=== PATIENT | male | born 1985 | race African-American/Black ===

== ENCOUNTER 2021-01-10 22:54 | Emergency (ER) | payer MEDICAID ==
[~2021-01-10] VITALS: Ht 175.3 cm; Wt 81.5 kg
[2021-01-11 00:03] LABS: CLARITY URINE CLEAR (CLEAR); COLOR URINE YELLOW (YELLOW); KETONES URINE NEGATIVE (NEGATIVE); LEUKOCYTE ESTERASE URINE NEGATIVE (NEGATIVE); NITRITE URINE NEGATIVE (NEGATIVE); OCCULT BLOOD URINE NEGATIVE (NEGATIVE); PROTEIN URINE NEGATIVE (NEGATIVE); SPECIFIC GRAVITY URINE 1.018 (1.005-1.030)
[2021-01-11 00:40] LABS: *AMPHETAMINES SCREEN URINE NEGATIVE (NEGATIVE); *BARBITURATES SCREEN URINE NEGATIVE (NEGATIVE); *BENZODIAZEPINES SCREEN URINE NEGATIVE (NEGATIVE); *COCAINE SCREEN URINE NEGATIVE (NEGATIVE); CANNABINOID URINE SCREEN NEGATIVE (NEGATIVE); METHADONE URINE SCREEN NEGATIVE (NEGATIVE); OPIATES URINE SCREEN NEGATIVE (NEGATIVE)
[2021-01-11 00:42] LABS: PHENCYCLIDINE URINE SCREEN NEGATIVE (NEGATIVE)
[2021-01-11 01:19] LABS: HEMOGLOBIN. 12.2 g/dL (14.0-18.0); MEAN CORPUSCULAR HEMOGLOBIN 28.8 pg (28.0-32.0); MEAN CORPUSCULAR VOLUME 84.7 fL (80.0-94.0); MEAN PLATELET VOLUME 7.9 fl (7.4-10.4); PLATELET 141 x1000/uL (130-400); RED BLOOD CELL COUNT 4.26 mill/uL (4.7-6.1); RED CELL DISTRIBUTION WIDTH 13.6 % (11.6-14.6)
[2021-01-11 01:27] LABS: CHLORIDE 107 mEq/L (98-107)
[2021-01-11 01:31] LABS: ETHANOL BLOOD < 10 mg/dL
[2021-01-11 03:28] LABS: PLATELET ESTIMATE NORMAL
[2021-01-11 05:24] VITALS: BP 110/76
== END 2021-01-11 05:31 | disposition home or self-care (01) ==
LOC: ER 22:54
DX: T43.591A Poisoning by other antipsychotics and neuroleptics, accidental (unintentional), initial encounter (principal); R41.0 Disorientation, unspecified; F16.10 Hallucinogen abuse, uncomplicated; R94.31 Abnormal electrocardiogram [ECG] [EKG]; R03.0 Elevated blood-pressure reading, without diagnosis of hypertension; F84.0 Autistic disorder; Y92.89 Other specified places as the place of occurrence of the external cause; F20.9 Schizophrenia, unspecified
CPT/HCPCS: 36415; 80053; 80305; 80307; 80320; 80329; 81003; 83735; 85025; 93005; 99285; G0480